=== PATIENT | female | born 1980 | race Caucasian/White ===

== ENCOUNTER 2018-02-02 23:04 | Emergency (ER) | payer BC, OTHER ==
[~2018-02-02] VITALS: Ht 167.6 cm; Wt 71.8 kg
[~2018-02-02 23:04] MED LIST: PRENTAB26 PO; SERT-234 PO; SERT50TA PO
[2018-02-02 23:16] VITALS: TEMP 37; Ht 167.6 cm; Wt 71.8 kg
--- NOTE | 2018-02-02 23:26 | EMERGENCY ROOM VISIT NOTE ---
History Report prepared by Andrea: Evelio Zamora Under the Supervision of: Dr. Basil Gomez M.D. First contact with patient: 23:19 Chief Complaint: KNEEPAIN Stated Complaint: DISLOCATED PATELLA History of Present Illness The patient is a 37 year old female who presents to the Emergency Room with complaints of constant left knee pain beginning this evening. The patient states it feels like it is dislocated. She reports he has a history of dislocating her knee, one time in high school and another time in college. The patient notes she had x-rays in high school, and she did not follow up with an orthopedic surgeon. She states typically her knee will pop back in, but this time it did not. The [place] her symptoms [place]. She notes she can still bend her knee without increased pain. The patient states it does feel like her knee is going to blow when she bends it. She denies any associated symptoms. Source of History: patient Onset: this evening Position: knee (left) Quality: other (dislocated) Timing: constant Note: Denies any associated symptoms. Review of Systems See HPI for pertinent positives & negatives. A total of 10 systems reviewed and were otherwise negative. Past Medical & Surgical Medical Problems: (1) Bronchitis Family History Diabetes mellitus Heart disease Hypertension Social History Smoking Status: Current Every Day Smoker Smokeless Tobacco Use: No Alcohol Use: none Marital Status: Housing Status: lives with family Occupation Status: employed Current/Historical Medications Scheduled Multivit/Min/Iron/Fol Ac/Pren ( Vitamin), 1 TAB PO DAILY Sertraline (Zoloft), 50 MG PO DAILY Sertraline (Zoloft), 100 MG PO DAILY Allergies Coded Allergies: No Known Allergies (Unverified , 09/26/13) Physical Exam Vital Signs Date Time Temp Pulse Resp B/P (MAP) Pulse Ox O2 Delivery O2 Flow Rate FiO2 02/03/18 00:16 89 102/62 98 18 23:16 37.0 93 18 120/75 99 Room Air Physical Exam GENERAL: Awake, alert, well-appearing, in no acute distress HENT: Normocephalic, atraumatic. Oropharynx unremarkable. EYES: Normal conjunctiva. Sclera non-icteric. NECK: Supple. No nuchal rigidity. FROM. No JVD. RESPIRATORY: Clear to auscultation. CARDIAC: Regular rate, normal rhythm. Extremities warm and well perfused. Pulses equal. ABDOMEN: Soft, non-distended. No tenderness to palpation. No rebound or guarding. No masses. RECTAL: Deferred. MUSCULOSKELETAL: Chest examination reveals no tenderness. The back is symmetrical on inspection without obvious abnormality. There is no CVA tenderness to palpation. No joint edema. LOWER EXTREMITIES: Calves are equal size bilaterally and non-tender. No edema. No discoloration. Left patella in place with good ROM free from pain. Foot is neurovascularly intact. No pain at the hip or left ankle. NEURO: Normal sensorium. No sensory or motor deficits noted. SKIN: No rash or jaundice noted. Medical Decision & Procedures ER Provider Diagnostic Interpretation: X-ray results as stated below per interpretation by me: Left knee: Two view: No evidence of fracture, dislocation, or subluxation. Patella appears to be in place. ED Course 2324: Past medical records reviewed. The patient was evaluated in room C06. A complete history and physical examination was performed. 2344: Upon reexamination the patient is feeling better. I discussed results and treatment plan with the patient. She verbalizes agreement and understanding. The patient is ready for discharge. Medical Decision Differential diagnosis: Etiologies such as fracture, dislocation, neurovascular compromise, compartment syndrome, soft tissue injury, as well as others were entertained. This is a 37-year-old female who presents emergency department complaining of knee dislocation during a period of high volume and high acuity.. Upon arrival to the emergency department the kneecap is in place. She has no pain with varus or valgus stress. Using shared medical decision making the decision was made to x-ray her knee. Will place the patient in a knee immobilizer and have her follow-up with orthopedics. The patient was given crutches and was in agreement with treatment plan. Medication Reconcilliation Current Medication List: was personally reviewed by me Blood Pressure Screening Patient's blood pressure: Normal blood pressure Blood pressure disposition: Did not require urgent referral Impression Primary Impression: Knee pain Scribe Attestation The scribe's documentation has been prepared under my direction and personally reviewed by me in its entirety. I confirm that the note above accurately reflects all work, treatment, procedures, and medical decision making performed by me. Departure Information Dispostion Home / Self-Care Referrals RV. Michael MD (PCP) Forms HOME CARE DOCUMENTATION FORM, IMPORTANT VISIT INFORMATION Patient Instructions ED Dislocation Patella, Kneecap Patella Probs Evaluate, Kneecap Probs Common, My [facility] [address] Additional Instructions Follow up with Dr Camejo's office for continued knee pain Take 1000 mg Tylenol for pain Take 600 mg Ibuprofen for pain You have been examined and treated today on an emergency basis only. This is not a substitute for, or an effort to provide, complete comprehensive medical care. It is impossible to recognize and treat all injuries or illnesses in a single emergency department visit. It is therefore important that you follow up closely with Dr Aguilar. Call as soon as possible for an appointment. Thank you for your time and consideration. I look forward to speaking with you again soon. Please don't hesitate to call us if you have any questions. Problem Qualifiers Primary Impression: Knee pain Chronicity: acute Laterality: left Qualified Codes: M25.562 - Pain in left knee
[2018-02-03 00:16] VITALS: BP 102/62; PULSE 89; O2SAT 98
--- NOTE | 2018-02-03 07:12 | DIAGNOSTIC IMAGING REPORT ---
L KNEE 1 OR 2 VIEWS ROUTINE CLINICAL HISTORY: 37 years-old Female presenting with Pt c/o left knee pain. TECHNIQUE: Frontal and crosstable lateral views of the left knee were obtained. COMPARISON: None. FINDINGS: Knee joint congruent. Ill-defined peripherally sclerotic lesion in the distal femoral metaphysis. This is eccentric within the medullary space and abuts the overlying cortex. No deformity of the overlying cortex. This has a nonaggressive appearance with a narrow zone of transition. This likely has a peripherally sclerotic rim. No associated periosteal reaction or fracture. No acute fracture or malalignment. No advanced degenerative change. Trace knee joint effusion may be present. IMPRESSION: 1. No acute osseous injury. 2. Distal femoral metaphyseal lesion is indeterminate though favored to represent a healed nonossifying fibroma or fibrous dysplasia. This lesion as a cause of pain cannot be excluded. Given the patient's symptomatology and age, further evaluation with contrast-enhanced MRI could be considered as clinically appropriate. Primary care physician (PCP) and/or surgical follow-up recommended until clinical, surgical, or pathologic diagnosis established. The report will be called/faxed according to standard departmental protocol. Electronically signed by: Giorgi Mallory M.D. 02/03/2018 7:11 AM Dictated Date/Time: 02/03/2018 7:01 AM
== END 2018-02-03 00:17 | disposition home or self-care (01) ==
LOC: C.EDB 23:08 → C.EDC 02-03 00:17
DX: M25.562 Pain in left knee (principal); F17.200 Nicotine dependence, unspecified, uncomplicated